=== PATIENT | male | born 1985 | race Caucasian/White ===

== ENCOUNTER 2022-12-22 12:54 | Emergency (ER) | payer OTHER, SELFPAY ==
[2022-12-22 13:05] VITALS: BP 153/87; PULSE 81; RESP 16; TEMP 36.6; O2SAT 96
--- NOTE | 2022-12-22 13:13 | ED.URI ---
HPI - URI/Sore Throat General Chief Complaint: Upper Respiratory Infection Stated Complaint: cough,soreness in joints/muscles Source: patient Mode of arrival: ambulatory Limitations: no limitations History of Present Illness HPI Narrative: 37-year-old male presents to [facility] with complaints of dry nonproductive cough, chest congestion, chest tightness, body aches, chills and intermittent fevers for the past 6 days. Patient reports his last fever of 102.5 was 2 days ago. Patient reports that he had negative COVID test complete at home. Patient denies sick contacts. Patient denies recent travel. Patient is a nonsmoker. Patient has been taking [id number] Robitussin and Tylenol cold and flu with minimal relief MD elicited complaint: fever and cough Onset (ago): day(s) (6) Description of mucous: clear Able to tolerate fluids by mouth: Yes Associated symptoms: denies other symptoms Treatments prior to arrival: cold medicine Related Data Home Medications Medication Instructions Recorded Confirmed losartan 100 mg tablet mg 12/22/22 Allergies Allergy/AdvReac Type Severity Reaction Status Date / Time Sulfa (Sulfonamide Allergy Unknown UNKNOWN Verified 12/16/18 18:09 Antibiotics) Review of Systems Constitutional: Constitutional: Reports chills, Reports fatigue, Reports fever(s) and Denies weakness ENT: Denies dizziness, Denies epistaxis and Denies nasal congestion Respiratory: Respiratory: Reports cough, Denies dyspnea and Denies wheezing Gastrointestinal: Gastrointestinal: Denies diarrhea, Denies nausea and Denies vomiting Integumentary/Breasts: Skin/Breast: Denies erythema and Denies rash Neurologic: Denies dizziness, Denies syncope and Denies headache(s) PMFSH Comments At time of signature, I agree with nursing past medical, surgical, social and family history. There is no relevant family history pertinent to the presenting complaint. Exam Const: General: healthy appearing and no acute distress Nutritional Appearance: well nourished Orientation/consciousness: patient oriented x3 Limitations: no limitations HENMT: Head: normal to inspection Ears: external ears normal, TM's normal bilaterally and EAC's normal Face/Nose/Sinus: Normal external nose present Teeth and gingiva: dentition normal Throat: posterior oropharynx normal and uvula midline Eyes: Conjunctivae: conjunctivae normal Neck: Neck: normal visual inspection Resp: Effort & Inspection: normal respiratory effort and not labored Auscultation: clear to auscultation bilaterally, no crackles, no rales, no rhonchi and no wheezes Cardio: Rate: regular rate Rhythm: regular rhythm Skin: General skin exam: normal color Rashes: no rashes Neuro: Speech: normal speech Gait exam (Neuro): Normal gait present Psych: Affect: normal affect Attitude: cooperative Course Course Level of Care: Express Care Visit Vital Signs Vital signs: Vital Signs Temperature 36.6 C 12/22/22 13:05 Pulse Rate 81 12/22/22 13:05 Respiratory Rate 16 12/22/22 13:05 Blood Pressure 153/87 H 12/22/22 13:05 Pulse Oximetry 96 12/22/22 13:05 Oxygen Delivery Room Air 12/22/22 13:05 Temperature 36.6 C 12/22/22 13:05 Pulse Rate 81 12/22/22 13:05 Respiratory Rate 16 12/22/22 13:05 Blood Pressure 153/87 H 12/22/22 13:05 Pulse Oximetry 96 12/22/22 13:05 Oxygen Delivery Room Air 12/22/22 13:05 MDM - URI/Sore Throat MDM Narrative Medical decision making narrative: Patient declines chest x-ray at this time. Patient agrees to take medications as prescribed. Patient agrees to follow-up with primary care provider if symptoms not improved. Encouraged patient to proceed to the emergency room if symptoms worsen Differential Diagnosis Differential diagnosis: Likely croup, otitis media and sinusitis Critical Care Time Critical Care Time Critical Care Time: No Discharge Plan Discharge Clinical Impression: Upper re
== END 2022-12-22 13:21 | disposition home or self-care (01) ==
PROVIDERS: Emergency Provider Nurse Practitioner Family; PCP Internal Medicine
DX: J06.9 Acute upper respiratory infection, unspecified (principal); I10 Essential (primary) hypertension
CPT/HCPCS: 99203; G0463